=== PATIENT | female | born 1970 | race Caucasian/White ===

== ENCOUNTER → 2017-03-18 | Day surgery (SDC) | payer OTHER ==
[~2017-03-18] MED LIST: ACETAMINOPHEN 1000 MG/100 ML 100 ML IV ONE; APREPITANT 40 MG CAP ONE; BUPIVACAINE HCL PF 0.5% 30 ML VIAL ONE; BUPIVACAINE/EPINEPHRINE 0.5% 50 ML VIAL ONE; KETOROLAC TROMETHAMINE 30 MG/ML (IVP) VIAL IV PUSH ONE; LACTATED RINGER'S 1000 ML INJ 1,000 ML ONE; MIDAZOLAM HCL 2 MG/2 ML VIAL ONE; ONDANSETRON HCL 4 MG/2 ML VIAL IV PUSH ONE; PROMETHAZINE INJ 25 MG/ML VIAL ONE; PROPOFOL 200 MG/20 ML AMP IV ONE; ceFAZolin INJ 1,000 MG VIAL ONE; metroNIDAZOLE 500 MG INJ 100 ML IV ONE
--- NOTE | 2017-03-18 08:47 | TN ---
cc: BRIAN GREY M.D., JAVIER M.D. DATE OF SURGERY: 03/18/2017 PREOPERATIVE DIAGNOSIS Cholelithiasis, cholecystitis. POSTOPERATIVE DIAGNOSIS Cholelithiasis, cholecystitis. PROCEDURE Laparoscopic cholecystectomy. ANESTHESIA General. SURGEON Dr. Grey. [employer] Kellen Laughlin, Advanced Registered Nurse Practitioner. INDICATION This is a pleasant 46-year-old female who had severe right upper quadrant pain lasting about 4 or 5 days. She had an ultrasound which showed gallstones ___ the gallbladder with some thickening in the gallbladder wall. She had a Valdivia's sign. Plans were made for above. PROCEDURE The patient was taken to the operating room and placed in the supine position. After endotracheal anesthesia her abdomen is prepped with Betadine. We do a time-out. She is given preoperative antibiotics. We make an incision just below the umbilicus. Veress needle was inserted, saline load test was performed. The abdomen was insufflated to 15 mmHg. A 10 mm trocar was introduced. Camera was introduced. Two other working ports were placed in the midline, one below the xiphoid, one in between the two previous placed ports. Gallbladder can be seen, it has some adhesions along with it, taken down with blunt dissection and the electrocautery device. The cystic duct, cystic artery were then doubly ligated and transected. They were ligated with the hemoclips. Gallbladder was then teased off the gallbladder bed, placed in EndoCatch, pulled out through the umbilical incision. Numerous stones can be palpated within the gallbladder. We check the dissection site, there is excellent hemostasis without biliary leakage. The liver is smooth, peritoneal surface is smooth. The cecum looks normal. Her appendix looks normal. No pathology seen in the pelvis. No other gross abnormality seen. The trocars were removed. C02 was removed. The abdomen was deinsufflated. The 10 mm port site was closed with 0 Vicryl at the fascial layer and skin is closed with 4-0 Vicryl at all three sites. The patient tolerated the procedure well, had no immediate postop complications. Brian Grey MD JDB/DEANNE /8:15 AM 8:24 AM
== END | disposition home or self-care (01) ==
LOC: ESDC 06:11
PROVIDERS: ATTEND Surgery
DX: K80.10 Calculus of gallbladder with chronic cholecystitis without obstruction (principal)
CPT/HCPCS: 00790; 47562; 88304; J0131; J0690; J1885; J2250; J2405; J2550; J3010; J7120; J8501